=== PATIENT | male | born 1945 | race Caucasian/White ===

== ENCOUNTER → 2023-08-05 16:09 | Outpatient (CLI) | payer MEDICARE, SELFPAY ==
[2023-08-05 18:16] LABS: Alanine Aminotransferase 39 U/L (12-78); Albumin Level 4.2 g/dl (3.5-5.0); Albumin/Globulin Ratio 1.4 (1.1-1.8); Alkaline Phosphatase 140 U/L (38-126); Anion Gap 14.7 mEq/L (5-15); Aspartate Amino Transferase 37 U/L (17-59); Bilirubin,Total 0.6 mg/dl (0.2-1.3); Blood Urea Nitrogen 42 mg/dl (9-20); Calcium 9.3 mg/dl (8.4-10.2); Carbon Dioxide 28 mmol/L (22.0-30.0); Chloride 96 mmol/L (98-107); Estimated Glomerular Filt Rate 39 ml/min (>60); GFR (African American) 48 ML/MIN (>60); Globulin 2.9 g/dL (1.3-3.2); Glucose 113 mg/dl (74-100); Lipase 112 U/L (23-300); Potassium 4.7 mmoL/L (3.5-5.1); Sodium 134 mmol/L (136-145); Total Protein,Serum 7.1 g/dl (6.3-8.2)
== END ==
PROVIDERS: PCP Internal Medicine Adolescent Medicine; Visit Provider Internal Medicine Adolescent Medicine
DX: R11.10 Vomiting, unspecified (principal)
CPT/HCPCS: 80053; 83690

== ENCOUNTER 2023-08-06 08:05 | Inpatient (IN) | payer MEDICAID, SELFPAY ==
[2023-08-06] VITALS (15 sets, daily range): BP systolic 91–128; BP diastolic 55–74; PULSE 83–113; RESP 14–20; TEMP 36.8–37.2; O2SAT 91–96; BMI 23.8
--- NOTE | 2023-08-06 07:58 | ECG_ITS ---
APPROVED REPORT Exam: Resting ECG HR:116 bpm ECG Measurements Heart Rate 116 AXES QRSd 90 QRS 59 QT 334 T 55 QTc 403 Conclusion ATRIAL FLUTTER/TACHYCARDIA WITH RAPID VENTRICULAR RESPONSE NONSPECIFIC T-WAVE ABNORMALITY ABNORMAL RHYTHM ECG UNCONFIRMED REPORT Electronically signed by : Andrew Angulo MD 08/06/2023 17:10:51
--- NOTE | 2023-08-06 08:11 | CT_ITS ---
FINAL REPORT TECHNIQUE: Postcontrast axial images through the abdomen and pelvis were performed. This study was performed with techniques to keep radiation doses as low as reasonably achievable, (ALARA). Individualized dose reduction techniques using automated exposure control or adjustment of mA and/or kV according to the patient's size were employed. CLINICAL HISTORY: pain/intractable vomiting FINDINGS: Abdomen: There is bibasilar atelectasis with small left effusion. There are multiple low-attenuation masses in the liver consistent with multiple cysts. There is sludge or stones in the gallbladder. The spleen is unremarkable. The adrenals are normal. The pancreas is unremarkable. There is moderate bilateral hydronephrosis and hydroureter. The aorta is normal in caliber. No free fluid or adenopathy is identified. There are multiple fluid-filled distended small bowel loops with decompressed distal small bowel. Findings are worrisome for distal small bowel obstruction. There is swirling in the right abdomen mesentery well seen on axial images 62-74. Internal hernia is not excluded. Pelvis: The appendix is not identified. The urinary bladder is distended to the level of the umbilicus. No free fluid, free air, abscess or adenopathy is identified. There is a chronic moderate L1 compression fracture. There are postoperative changes in the bilateral inguinal regions IMPRESSION: Findings worrisome for distal small bowel obstruction with questionable internal hernia. Sludge or stones in the gallbladder. Bilateral hydronephrosis and hydroureter. Reviewed, Interpreted and Dictated by Ike Caballero III, MD Transcribed by Jayshree Pantoja Authenticated and [facility]
--- NOTE | 2023-08-06 08:11 | CT_ITS ---
FINAL REPORT TECHNIQUE: Then section axial CT images of the chest were obtained with contrast. Three-D reformatted images were also obtained.This study was performed with techniques to keep radiation doses as low as reasonably achievable (ALARA). Individualized dose reduction techniques using automated exposure control or adjustment of mA and/or kV according to the patient''s size were employed. CLINICAL HISTORY: tachycardic, SOA COMPARISON: None FINDINGS: There is suboptimal timing of the contrast bolus, and there is some limitation of overall image quality secondary to motion. There is no evidence of pulmonary embolism. There is ectasia of the thoracic ascending aorta, which measures 4.2 cm in diameter. There is a large mass centered in the left thyroid lobe which measures 9.8 x 7.7 cm in size and has either central necrosis or large central cyst. This mass creates mass effect involving the upper trachea and pharynx, which are deviated to the right. Mild changes of emphysema are present. Moderate scarring is present in the lung bailon bilaterally. A small left pleural effusion is present, and there is mild bibasilar atelectasis. An abdomen and pelvic CT was also performed on 08/06/2023, and discussion of the abdomen and pelvis are in that dictation. IMPRESSION: No evidence of pulmonary embolism. Large mass in the left lobe of the thyroid gland, measuring 9.8 x 7.7 cm in size with central necrosis or a large central cyst. There is marked mass effect upon the upper trachea and pharynx as described. Ectasia of the ascending aorta measuring 4.2 cm in diameter. Reviewed, Interpreted and Dictated by Ike Caballero III, MD Transcribed by Piedad Blacn Authenticated and [facility] [place] [place]
--- NOTE | 2023-08-06 08:16 | HMH.EDGENADL ---
Discharge Plan Disposition Patient Disposition: Admitted Prescriptions Prescriptions: No Action amiodarone 200 mg tablet 200 mg PO BID ondansetron HCl 4 mg tablet 4 mg PO Q4-6H pantoprazole 20 mg tablet,delayed release (DR/EC) 20 mg PO BID tamsulosin 0.4 mg capsule 0.4 mg PO DAILY metoprolol succinate 25 mg tablet extended release 24 hr 25 mg PO DAILY oxybutynin chloride 5 mg tablet 5 mg PO BID Eliquis 5 mg tablet 5 mg PO DAILY Referrals Follow up/Referrals: Andrew Angulo MD [Primary Care Provider] - See instructions Clinical Impressions Clinical Impression: Bowel obstruction, Acute urinary retention, BURTON (acute kidney injury), Atrial fibrillation Instructions Patient Instructions: DI for Diarrhea and Traveler's Diarrhea -- Adult, DI for Diarrhea and Traveler's Diarrhea -- Child, DI for Nausea -- Adult, DI for Nausea -- Child Discharge ED Provider: Meghan May General Adult HPI General Chief complaint: Nausea/Vomiting/Diarrhea Stated complaint: nausea & vomiting Time Seen by Provider: 08/06/23 08:06 Mode of Arrival: EMS Source of Information: Patient Limitations: No Limitations Description of Symptoms (Recalled from ER Triage Doc. by RN): Presents to ED from [place] with a chief complaint of vomiting since yesterday. [place] stated he came to them to finish rehab from [facility] for left hip fracture. [place] reports patient recieved a dose of IM Phenergan yesterday and 2 doses of Zofran last dose given at 0330. +Eliquis. Last BM yesterday History of Present Illness HPI narrative: This patient is a 77-year-old male with a history of thyroid disease, paroxysmal atrial fibrillation on Eliquis, CHF, CKD, UTI, hyponatremia, GERD, BPH, and prior left femur fracture who is currently at [facility] presenting to the emergency department for evaluation with concern for intractable nausea and vomiting. Per the nursing facility, the patient started vomiting yesterday. He has had Zofran twice and IM Phenergan once with no improvement. His last bowel movement was yesterday. They also note that his heart rate was irregular in the facility. Patient currently states that he has been vomiting since yesterday. He complains of mild generalized abdominal pain, but he denies other concerns at this time. He states he is very thirsty. Patient was brought in by EMS who noted that he was tachycardic but otherwise stable in route. Related Data Home Medications Medication Instructions Recorded Confirmed amiodarone 200 mg tablet 200 mg PO BID 08/06/23 08/06/23 apixaban 5 mg tablet (Eliquis) 5 mg PO DAILY 08/06/23 08/06/23 metoprolol succinate 25 mg 25 mg PO DAILY 08/06/23 08/06/23 tablet,extended release 24 hr ondansetron HCl 4 mg tablet 4 mg PO Q4-6H 08/06/23 08/06/23 oxybutynin chloride 5 mg tablet 5 mg PO BID 08/06/23 08/06/23 pantoprazole 20 mg tablet,delayed 20 mg PO BID 08/06/23 08/06/23 release tamsulosin 0.4 mg capsule 0.4 mg PO DAILY 08/06/23 08/06/23 Allergies Allergy/AdvReac Type Severity Reaction Status Date / Time No Known Allergies Allergy Verified 08/06/23 08:48 [facility] Disclaimer: The information contained in this section may have been updated after the patient was seen, as this information can be updated by other users. Social History Smoking Status: Unknown if ever smoked alcohol intake: never current occupational status: retired Travel in the last 8 weeks: None ROS Obtained: Yes All systems reviewed & no additional complaints except as documented Physical Exam General General appearance: alert and in no apparent distress Head Head exam: atraumatic and normocephalic Eye Eye exam: Present normal appearance, PERRL and EOMI ENT ENT exam: Present mucous membranes dry and normal external ear exam Neck Neck exam: Present normal inspect
[2023-08-06 08:26] LABS: Basophils % 0.3 % (0.1-2.0); Eosinophils % 0.6 % (0.1-12.0); Hematocrit 36.9 % (42.0-52.0); Hemoglobin 12.5 g/dL (14.1-18.0); Lymphocytes # 0.5 K/mm3 (0.7-4.5); Lymphocytes % 9.1 % (10-50); Mean Corpuscular HGB Conc 33.9 g/dL (31.8-35.4); Mean Corpuscular Hemoglobin 30.3 pg (27.0-31.2); Mean Corpuscular Volume 89.4 fl (80-94); Mean Platelet Volume 8.2 fl (7.4-10.4); Monocytes # 0.4 K/mm3 (0.1-1.0); Monocytes % 8.2 % (1.7-9.3); Neutrophils # 4.2 K/mm3 (1.8-7.8); Neutrophils % 81.8 % (37.0-80.0); Platelet Count 249 K/mm3 (142-424); Red Blood Count 4.12 M/mm3 (4.60-6.20); Red Cell Distribution Width 13.6 % (11.5-17.5); White Blood Count 5.2 K/mm3 (4.8-10.8)
--- NOTE | 2023-08-06 08:27 | ECG_ITS ---
APPROVED REPORT Exam: Resting ECG HR:119 bpm ECG Measurements Heart Rate 119 AXES QRSd 88 QRS -2 QT 305 T 52 QTc 376 Conclusion ATRIAL FIBRILLATION WITH RAPID VENTRICULAR RESPONSE NONSPECIFIC T-WAVE ABNORMALITY ABNORMAL RHYTHM ECG UNCONFIRMED REPORT Electronically signed by : Andrew Angulo MD 08/06/2023 17:10:42
--- NOTE | 2023-08-06 08:30 | PC.NURSE ---
Called lab to have them come draw blood cx
[2023-08-06 08:32] LABS: Alanine Aminotransferase 36 U/L (12-78); Albumin Level 4.1 g/dl (3.5-5.0); Albumin/Globulin Ratio 1.3 (1.1-1.8); Alkaline Phosphatase 105 U/L (38-126); Anion Gap 13.3 mEq/L (5-15); Aspartate Amino Transferase 37 U/L (17-59); Bilirubin,Total 0.9 mg/dl (0.2-1.3); Blood Urea Nitrogen 46 mg/dl (9-20); Calcium 9.2 mg/dl (8.4-10.2); Carbon Dioxide 30 mmol/L (22.0-30.0); Chloride 95 mmol/L (98-107); Creatinine Clearance Estimated 35 mL/min (50-200); Estimated Glomerular Filt Rate 35 ml/min (>60); GFR (African American) 42 ML/MIN (>60); Globulin 3.1 g/dL (1.3-3.2); Glucose 115 mg/dl (74-100); Lipase 35 U/L (23-300); Potassium 4.3 mmoL/L (3.5-5.1); Sodium 134 mmol/L (136-145); Total Protein,Serum 7.2 g/dl (6.3-8.2)
[2023-08-06 08:34] LABS: Activated Partial Thrombo Time 35.5 seconds (22.8-30.6); INR 1.17 (0.9-1.1); Prothrombin Time 12.5 seconds (10.1-12.5)
[2023-08-06 08:43] LABS: NT Pro Brain Natriuretic Pep. 3610 pg/mL (0-450)
[2023-08-06 08:45] LABS: Troponin I 0.02 ng/ml (0.00-0.034)
[2023-08-06 08:50] LABS: T4 (Thyroxine) 6.4 ug/dl (5.53-11.0)
[2023-08-06 09:16] LABS: Lactic Acid 1.1 mmol/L (0.7-2.1)
--- NOTE | 2023-08-06 10:26 | PC.NURSE ---
Pt turned onto left side, and repositioned in bed for comfort. Warm blanket provided. No other needs voiced at this time and call light remains within reach.
[2023-08-06 10:29] LABS: Appearance,Urine CLEAR (Clear); Bilirubin,Urine Negative (Negative); Blood, Urine TRACE-I (Negative); Color,Urine YELLOW (Yellow); Glucose,Urine (UA) Negative (Negative); Ketones,Urine Negative (Negative); Leukocyte Esterase,Urine Negative (Negative); Microscopic, Urine URINE MICROSCOPIC (MICROSCOPIC); Nitrate,Urine Negative (Negative); PH,Urine 5.5 (5.0-8.5); Protein,Urine Negative (Negative); Urobilinogen,Urine 0.2 EU/dl (0.2)
--- NOTE | 2023-08-06 10:31 | PC.NURSE ---
Bladder scanned patient; >1387mL. Catheter placed 1800mL output from avery catheter; MD notified. Call light within reach.
--- NOTE | 2023-08-06 10:36 | PC.NURSE ---
Pt also provided and assisted with mouth swab
[2023-08-06 10:41] LABS: Coronavirus 19, PCR Not Detected (NotDetected); Influenza A, PCR Not Detected (NotDetected); Influenza B, PCR Not Detected (NotDetected)
[2023-08-06 10:44] LABS: Bacteria,Urine Trace /lpf; RBC,Urine Occasional #/hpf (0-3); Squamous Epithelial Cell,Urine Occasional #/hpf (0-5); WBC,Urine Occasional #/hpf (0-3)
--- NOTE | 2023-08-06 11:00 | PC.NURSE ---
Rounded on patient; call light within reach of patient
--- NOTE | 2023-08-06 11:04 | XR_ITS ---
FINAL REPORT CLINICAL HISTORY: post NG tube placement FINDINGS: SINGLE-VIEW CHEST The heart size is normal. The patient is rotated to the right. The mediastinum is normal. There are mild bibasilar opacities, favor atelectasis. The right thorax is incompletely imaged. NG tube tip is near the GE junction. There is no pneumothorax. IMPRESSION: NG tube as above. Bibasilar atelectasis. Reviewed, Interpreted and Dictated by Ike Caballero III, MD Transcribed by Jayshree Pantoja Authenticated and [facility]
--- NOTE | 2023-08-06 11:04 | PC.NURSE ---
called rad for post NG tube placement
--- NOTE | 2023-08-06 11:09 | PC.NURSE ---
RAD at BS for post NG tube placement confirmation
--- NOTE | 2023-08-06 11:14 | PC.NURSE ---
Dr. Heller at bedside
--- NOTE | 2023-08-06 11:14 | PC.NURSE ---
Dr. May s/w Dr. Camargo regarding admission
--- NOTE | 2023-08-06 11:31 | EXP.HP ---
History of Present Illness *Admission Date: 08/06/23 *Reason for visit:: nausea and vomiting *History of present illness: Patient is a poor historian and. Most of history obtained from ER documentation, discussion with ER physician, and some from patient. Mr. Dempsey is a 77-year-old male with history of thyroid disease, paroxysmal A-fib, CHF, CKD, previously had a left femur fracture and was in rehab until this past weekend when he was transferred to [facility] for continued skilled therapy and nursing care. prison reported that he has been having nausea and vomiting that is intractable. Nonbloody. Symptoms for the past 24 hours. Last bowel movement yesterday. No significant response to Zofran or Phenergan. Noted to have an irregular heart rate at the facility. Was brought to the ER via EMS for further evaluation. Complained of mild generalized abdominal pain on arrival. Afebrile. Also complains of being thirsty. No chest pain or shortness of breath. Patient is afebrile. Stable on room air. Imaging of abdomen showed concern for obstruction likely secondary to severely distended bladder. Land catheter placed in the ER draining 1.8 L upon placement. NG placed for decompression and surgery was consulted. Medicine consulted for admission. Patient denies any abdominal pain after arriving to the floor. Belly is soft. Land catheter in place continuing to drain significant urine. No further vomiting or nausea since admission. [facility] Disclaimer: The information contained in this section may have been updated after the patient was seen, as this information can be updated by other users. Social History Smoking Status: Unknown if ever smoked alcohol intake: never current occupational status: retired Travel in the last 8 weeks: None Review of Systems Review of Systems Review of systems (narrative): 14 point review of systems performed, pertinent positives and negatives as per HPI Meds Home Medications and Allergies Home Medications Medication Instructions Recorded Confirmed Type acetaminophen 500 mg tablet 1,000 mg PO BIDP PRN Fever Or Pain 08/06/23 08/06/23 History amiodarone 200 mg tablet 200 mg PO BID 08/06/23 08/06/23 History apixaban 5 mg tablet (Eliquis) 5 mg PO BID 08/06/23 08/06/23 History metoprolol succinate 25 mg 25 mg PO DAILY 08/06/23 08/06/23 History tablet,extended release 24 hr ondansetron HCl 4 mg tablet 4 mg PO Q4-6H PRN nausea or 08/06/23 08/06/23 History vomiting oxybutynin chloride 5 mg tablet 5 mg PO BID 08/06/23 08/06/23 History pantoprazole 20 mg tablet,delayed 20 mg PO BID 08/06/23 08/06/23 History release sucralfate 1 gram tablet (Carafate) 1 g PO HS 08/06/23 08/06/23 History tamsulosin 0.4 mg capsule 0.4 mg PO HS 08/06/23 08/06/23 History zinc oxide 12 % topical cream 1 applic topical DAILY Coccyx 08/06/23 08/06/23 History (Paco Protect (zinc oxide)) New Prescriptions to Start Prescriptions: Allergies Allergy/AdvReac Type Severity Reaction Status Date / Time No Known Allergies Allergy Verified 08/06/23 08:48 Exam Data for Last 24 hours Vital signs and Labs for Last 24 Hours: Temp Pulse Resp BP Pulse Ox O2 Del Method 98.8 F 113 H 20 114/70 95 Room Air 08/06/23 08:05 08/06/23 11:00 08/06/23 11:00 08/06/23 11:00 08/06/23 11:00 08/06/23 10:00 Laboratory Results - last 24 hr 08/06/23 08:10: WBC 5.2, RBC 4.12 L, Hgb 12.5 L, Hct 36.9 L, MCV 89.4, MCH 30.3, MCHC 33.9, RDW 13.6, Plt Count 249, MPV 8.2, Neut % (Auto) 81.8 H, Lymph % (Auto) 9.1 L, [place] % (Auto) 8.2, Eos % (Auto) 0.6, Baso % (Auto) 0.3, Neut # (Auto) 4.2, Lymph # (Auto) 0.5 L, [place] # (Auto) 0.4, Eos # (Auto) 0.0, Baso # (Auto) 0.0, PT 12.5, INR 1.17 H, APTT 35.5 H, Sodium 134 L, Potassium 4.3, Chloride 95 L, Carbon Dioxide 30, Anion Gap 13.3, BUN 46 H, Creatinine 1.90 H, Estimated Creat Clear 35, Estimated GFR 35 L, Est G
--- NOTE | 2023-08-06 11:38 | EXP.SURG.CON ---
History of Present Illness *Admission Date: 08/06/23 *Reason for visit:: Possible bowel obstruction *History of present illness: This is a 77-year-old gentleman seen in consultation after evaluation emergency department for nausea/vomiting. Please see HPI and truncated medical decision making narrative from emergency department evaluation reported below. Forwarded from emergency department evaluation: This patient is a 77-year-old male with a history of thyroid disease, paroxysmal atrial fibrillation on Eliquis, CHF, CKD, UTI, hyponatremia, GERD, BPH, and prior left femur fracture who is currently at [facility] for rehabilitation presenting to the emergency department for evaluation with concern for intractable nausea and vomiting. Per the nursing facility, the patient started vomiting yesterday. He has had Zofran twice and IM Phenergan once with no improvement. His last bowel movement was yesterday. They also note that his heart rate was irregular in the facility. Patient currently states that he has been vomiting since yesterday. He complains of mild generalized abdominal pain, but he denies other concerns at this time. He states he is very thirsty. Patient was brought in by EMS who noted that he was tachycardic but otherwise stable in route. Medical Decision Narrative: He was just brought there yesterday from [facility] for rehabilitation of his left femur fracture. On exam, the patient is tachycardic with an irregularly irregular rhythm. Otherwise, vital signs are reassuring. He does have abdominal distention with tenderness. Workup included broad lab evaluation including infectious, metabolic, and cardiac workup as well as CT scan of the chest, abdomen, and pelvis. EKG was obtained and demonstrated atrial tachycardia with no acute ST changes concerning for ischemia. Patient was given a bolus of IV fluids as well as IV Zofran for symptomatic improvement. On reassessment, the patient continues to be in atrial fibrillation with a rate in the low 100s. Rate control not administered, as I feel that this is likely in response to his acute illness. I independently interpreted CT scan prior to the radiologist read and noted significant bladder distention as well as multiple air/fluid levels and dilated bowel loops concerning for bowel obstruction and acute urinary retention. Please see their read for final interpretation. Labs were obtained that demonstrated BURTON with worsening of creatinine from even yesterday. He is up to 1.9 from 1.7. He also has mild hyponatremia and hypochloremia. Given acute urinary retention, Land catheter was placed with 1.8 L of urine in the bladder. Patient was also agreeable to have an NG tube placed to prevent further vomiting, as he continues to have belching at this time. After Land catheter was placed, patient had significant improvement in abdominal distention. I called and had an interactive discussion with general surgeon, Dr. Heller, who advised this all could be result of the acute urinary retention, however he advises NG placement and monitoring. I had an interactive discussion with Dr. Camargo who is agreeable to admit the patient for further evaluation and management given these things. PFSH PFSH Disclaimer: The information contained in this section may have been updated after the patient was seen, as this information can be updated by other users. Social History (Updated 08/06/23 @ 11:30 by Meghan May DO) Smoking Status: Unknown if ever smoked alcohol intake: never current occupational status: retired Travel in the last 8 weeks: None Meds Home Medications and Allergies Home Medications Medication Instructions Recorded Confirmed Type amiodarone 200 mg tablet 200 mg PO BID 08/06/23 08/06/23 History apixaban 5 mg tablet (Eliquis) 5 mg PO DAILY 08/06/23 08/06/23 Histor
[2023-08-06 11:58] LABS: Troponin I 0.02 ng/ml (0.00-0.034)
--- NOTE | 2023-08-06 12:11 | PC.NURSE ---
Report given to Rajat THOMSON
--- NOTE | 2023-08-06 12:30 | PC.NURSE ---
Rounded on patient; call light within reach.
--- NOTE | 2023-08-06 14:02 | P.CONPHA_ITS ---
Pharmacy Intervention Comments: Med reconciliation completed using list from [place]
--- NOTE | 2023-08-06 14:56 | HMH.PTEV ---
Physical Therapy Evaluation Rehab PT IP Evaluation Start: 08/06/23 11:33 Freq: ONCE Status: Active Protocol: Document 08/06/23 14:50 PHORNE (Rec: 08/06/23 14:56 PHORNE [id number]) Subjective/History History History 77 yowm adm to [facility] with urinary retention and SBO. He has PMH of thyroid disease, paroxysmal atrial fibrillation on Eliquis, CHF, CKD, UTI, hyponatremia, GERD, BPH, and prior left femur fracture. He was apparently just transferred to SNF from inpatient rehab yesterday for continued rehab after femur fx . Unknown prior living situation. Subjective Subjective Pt reports feeling thirsty, but otherwise no new c/o. Agrees to mobility assessment. New diagnosis of cancer in past 12 No months? Rehab PT IP Eval Objective Appearance Patient Behavior Appropriate Patient Orientation Person,Place Difficulty following instructions none Speech Pattern Clear Ambulation Patient Able to Ambulate Yes Ambulation Observation IP General Gait Pattern Observation Shuffling Step Ambulation Distance (feet) 10 Ambulation Assistive Device Rolling Walker Ambulation Ability Contact Guard/Hand Hold Balance Ability to Arise Able, uses arms to help Sitting Balance Steady, safe Standing Balance Steady, wide stance Dynamic Sitting Balance Ability Good Dynamic Standing Balance Ability Fair Transfers Bed Transfer Ability Minimal x 1 (25% assist) Chair Transfer Ability Minimal x 1 (25% assist) Sit to Stand Bed Transfer Ability Minimal x 1 (25% assist) Sit to Stand Chair Transfer Ability Minimal x 1 (25% assist) Rehab PT IP prob,goals,plan Problems Date of Evaluation: 08/06/23 PT IP Problems Bed Mobility,Transfers,Gait Rehab Potential Rehab Potential Good Plan PT Intervention Plan Bed Mobility,Transfers,Gait, Therapeutic Exercise PT Plan Frequency Daily Duration LOS Discharge Goals Bed Transfer Ability Contact Guard/Hand Hold Sit to Stand Chair Transfer Ability Contact Guard/Hand Hold Ambulation Assistive Device Rolling Walker Ambulation Distance (feet) 25 Discharge Plan PT Discharge Plan Pt is currently most appropriate f
[2023-08-06 15:11] LABS: Troponin I 0.01 ng/ml (0.00-0.034)
--- NOTE | 2023-08-06 15:31 | CARE MANAGER ---
Addendum entered by Geneva Munguia RN 08/08/23 12:42: Faxed updates to [facility]. Patient should be able to discharge soon. Original Note: Spoke with Carla at [facility]. Patient only has Medicare part B. He is currently Medicaid pending at their facility. Will update them on condition.
--- NOTE | 2023-08-06 15:55 | HMH.OTEV ---
OT Inpatient Evaluation Rehab OT IP Evaluation Start: 08/06/23 11:33 Freq: ONCE Status: Active Protocol: Document 08/06/23 15:16 LEBRONJOHAN (Rec: 08/06/23 15:55 RENITA [id number]) Rehab OT IP Assessment Subjective History This patient is a 77-year-old male with a history of thyroid disease, paroxysmal atrial fibrillation on Eliquis, CHF, CKD, UTI, hyponatremia, GERD, BPH, and prior left femur fracture who is currently at [facility] presenting to the emergency department for evaluation with concern for intractable nausea and vomiting. Per the nursing facility, the patient started vomiting yesterday. He has had Zofran twice and IM Phenergan once with no improvement. His last bowel movement was yesterday. They also note that his heart rate was irregular in the facility. Patient currently states that he has been vomiting since yesterday. He complains of mild generalized abdominal pain, but he denies other concerns at this time. He states he is very thirsty. Patient was brought in by EMS who noted that he was tachycardic but otherwise stable in route. Patient has a hx of femur fx with recieving therapy at [facility] prior to [place]. Unknow of baseline with ADLs and fx'l mobility. Subjective I can get up. Instructed Patient on proper hand and foot placement to participate in bed mobility from supine->sit @ EOB->stand- > ambulate within room ~10ft. Patient currently at NG tube and catheter placements which limited mobility distance. All
--- NOTE | 2023-08-06 18:54 | PC.NURSE ---
patient is alert and follows commands. ng tube 58 at the nare. he denies pain. abd is soft and non-tender. tolerating room air well. avery cath in place to bedside drain. dr baig rounded on patient. wants po contrast given at 2200 for ABD series in the in the morning; will pass this along to oncoming nurse. Ozzie in radiology was made aware also.
[2023-08-07 04:00] VITALS: BMI 21.5
--- NOTE | 2023-08-07 05:40 | PC.NURSE ---
Patient left the floor with x-ray at this time.
--- NOTE | 2023-08-07 05:52 | PC.NURSE ---
Patient returned to floor from x-ray at this time.
--- NOTE | 2023-08-07 06:00 | XR_ITS ---
PROCEDURE INFORMATION: Exam: XR Complete Acute Abdomen Series Including Chest Exam date and time: 08/07/2023 5:33 AM Age: 77 years old Clinical indication: Abnormal findings; Abnormal radiologic finding of the abdomen; Radiologic exam and body structure: CT abd/pelvis; Patient HX: Contrast given 8 hours prior to exam; Additional info: Sbo vs ileus TECHNIQUE: Imaging protocol: Radiologic exam. Complete acute abdomen series, including 2 or more views of the abdomen and a single view chest. COMPARISON: 1. CR XR CHEST PORTABLE 08/06/2023 11:04 AM 2. Report from CT chest, abdomen and pelvis 08/06/2023 is available, images are not available for direct comparison FINDINGS: Tubes, catheters and devices: Tip of NG tube is at the GE junction and should be advanced into the stomach. Tubular density projects midline of the pelvis, likely Land catheter with balloon. Lungs: Calcified granuloma left upper lobe. Biapical scarring. Scattered reticular markings bilaterally. Pleural spaces: Normal. No pleural effusions. No pneumothorax. Heart/Mediastinum: Rightward tracheal and esophageal deviation again noted, likely due to large left thyroid mass described on comparison report. Gastrointestinal tract: Contrast throughout the colon. Scattered mildly distended air-filled loops of small bowel. Left colonic diverticulosis. Intraperitoneal space: Normal. No free air. Bones/joints: Mild rightward curvature of the thoracic spine. Soft tissues: Normal. IMPRESSION: 1. Tip of NG tube is at the GE junction and should be advanced into the stomach. 2. Oral contrast is present throughout the colon and rectum, therefore no obstruction is evident. Left colonic diverticulosis is noted. Mildly distended loops of gas-filled small bowel, likely ileus. 3. Chronic chest findings as above.
[2023-08-07 07:43] VITALS: BP 96/62; PULSE 94; RESP 20; TEMP 36.9; O2SAT 94
[2023-08-07 07:58] LABS: Basophils % 0.2 % (0.1-2.0); Eosinophils # 0.2 K/mm3 (0.0-0.4); Eosinophils % 3.7 % (0.1-12.0); Hematocrit 34.3 % (42.0-52.0); Lymphocytes # 0.5 K/mm3 (0.7-4.5); Lymphocytes % 11.8 % (10-50); Mean Corpuscular HGB Conc 32.4 g/dL (31.8-35.4); Mean Corpuscular Hemoglobin 29.6 pg (27.0-31.2); Mean Corpuscular Volume 91.3 fl (80-94); Mean Platelet Volume 8.3 fl (7.4-10.4); Monocytes # 0.3 K/mm3 (0.1-1.0); Monocytes % 6.4 % (1.7-9.3); Neutrophils # 3.3 K/mm3 (1.8-7.8); Platelet Count 237 K/mm3 (142-424); Red Blood Count 3.76 M/mm3 (4.60-6.20); Red Cell Distribution Width 13.6 % (11.5-17.5); White Blood Count 4.2 K/mm3 (4.8-10.8)
[2023-08-07 08:14] LABS: Alanine Aminotransferase 29 U/L (12-78); Albumin Level 3.6 g/dl (3.5-5.0); Albumin/Globulin Ratio 1.3 (1.1-1.8); Alkaline Phosphatase 104 U/L (38-126); Anion Gap 13.7 mEq/L (5-15); Aspartate Amino Transferase 34 U/L (17-59); Bilirubin,Total 0.6 mg/dl (0.2-1.3); Blood Urea Nitrogen 38 mg/dl (9-20); Calcium 8.8 mg/dl (8.4-10.2); Carbon Dioxide 27 mmol/L (22.0-30.0); Chloride 102 mmol/L (98-107); Creatinine Clearance Estimated 37 mL/min (50-200); Estimated Glomerular Filt Rate 42 ml/min (>60); GFR (African American) 51 ML/MIN (>60); Globulin 2.8 g/dL (1.3-3.2); Glucose 97 mg/dl (74-100); Magnesium 1.8 mg/dl (1.6-2.3); Potassium 3.7 mmoL/L (3.5-5.1); Sodium 139 mmol/L (136-145); Total Protein,Serum 6.4 g/dl (6.3-8.2)
[2023-08-07 09:14] LABS: Hemoglobin 11.1 g/dL (14.1-18.0)
--- NOTE | 2023-08-07 09:30 | P.PN_ITS ---
Subjective Patient reports: bowel movement Narrative: Minimal nasogastric output. Multiple bowel movements noted per nursing. Exam Data for Last 24 hours Vital signs and Labs for Last 24 Hours: Temp Pulse Resp BP Pulse Ox O2 Del Method 98.5 F 94 H 20 96/62 L 94 L Room Air 08/07/23 07:43 08/07/23 07:43 08/07/23 07:43 08/07/23 07:43 08/07/23 07:43 08/07/23 07:43 Laboratory Results - last 24 hr 08/06/23 10:21: Urine Color Yellow, Urine Appearance Clear, Urine pH 5.5, Ur Specific [place] 1.010, Urine Protein Negative, Urine Glucose (UA) Negative, Urine Ketones Negative, Urine Blood Trace-i, Urine Nitrate Negative, Urine Bilirubin Negative, Urine Urobilinogen 0.2, Ur Leukocyte Esterase Negative, Urine RBC Occasional, Urine WBC Occasional, Ur Squamous Epith Cells Occasional, Urine Bacteria Trace 08/06/23 10:33: SARS-CoV-2 (PCR) Not detected, Influenza A Untype (PCR) Not detected, Influenza Type B (PCR) Not detected 08/06/23 11:25: Troponin I 0.02 08/06/23 14:35: Troponin I 0.01 08/07/23 07:16: WBC 4.2 L, RBC 3.76 L, Hgb 11.1 L D, Hct 34.3 L, MCV 91.3, MCH 29.6, MCHC 32.4, RDW 13.6, Plt Count 237, MPV 8.3, Neut % (Auto) 78.0, Lymph % (Auto) 11.8, [place] % (Auto) 6.4, Eos % (Auto) 3.7, Baso % (Auto) 0.2, Neut # (Auto) 3.3, Lymph # (Auto) 0.5 L, [place] # (Auto) 0.3, Eos # (Auto) 0.2, Baso # (Auto) 0.0, Sodium 139, Potassium 3.7, Chloride 102, Carbon Dioxide 27, Anion Gap 13.7, BUN 38 H, Creatinine 1.60 H, Estimated Creat Clear 37, Estimated GFR 42 L, Est GFR ( Amer) 51 L D, Glucose 97, Calcium 8.8, Magnesium 1.8, Total Bilirubin 0.6, AST 34, ALT 29, Alkaline Phosphatase 104, Total Protein 6.4, Albumin 3.6 D, Globulin 2.8, Albumin/Globulin Ratio 1.3 I & O for Last 24 hours: Intake & Output 08/04/23 08/05/23 08/06/23 08/07/23 11:59 11:59 11:59 11:59 Output Total 1800 / 1800 2425 / 2425 Balance -1800 / -1800 -2425 / -2425 Weight 166 lb 150 lb 5 oz Radiology Reports for the Last 24 Hours: Flat and upright dated 08/07/2023 - IMPRESSION: 1. Tip of NG tube is at the GE junction and should be advanced into the stomach. 2. Oral contrast is present throughout the colon and rectum, therefore no obstruction is evident. Left colonic diverticulosis is noted. Mildly distended loops of gas-filled small bowel, likely ileus. 3. Chronic chest findings as above. Constitutional Constitutional: no acute distress *Routine Respiratory Exam Respiratory: Absent respiratory distress *Routine Cardiovascular Exam Cardiovascular: Absent tachycardia *Routine Abdominal Exam Abdominal: Present soft Progress Note: A&P Assessment and plan (1) Bowel obstruction: Status: Acute Assessment and plan: Morning films consistent with ongoing ileus; however, there is no evidence of obstruction as oral contrast is noted within colon/rectum. Multiple bowel movements noted. Nasogastric tube to be removed Continue serial abdominal exams Very slow advancement of diet as per primary service (note persistent ileus) (2) Acute urinary retention: Status: Acute
--- NOTE | 2023-08-07 10:33 | EXP.ACUTE.PN ---
Subjective *Date: 08/07/23 *Time: 10:33 Interval history: Patient stoic on exam this morning. No vomiting overnight. Has had 2.5 L of urine output and 1.8 L of gastric output. Imaging of abdomen this morning showed no obstruction, appears to have some ileus given bowel gas and fluid pattern. Contrast all the way to rectum however. Denies nausea, abdominal pain, chest pain, shortness of breath. Medical Exam Vital signs and Labs for Last 24 Hours: Vital Signs Temp Pulse Pulse Resp BP BP Pulse Ox 08/07/23 07:43 98.5 F 94 H 20 96/62 L 94 L 08/07/23 05:00 08/06/23 20:00 08/06/23 23:00 08/06/23 21:00 08/06/23 20:00 98.9 F 92 H 18 122/67 95 08/06/23 17:40 08/06/23 17:00 08/06/23 16:00 98.2 F 100 H 18 128/62 94 L 08/06/23 15:00 08/06/23 13:00 08/06/23 12:30 104 H 18 105/73 L 95 08/06/23 12:45 98.8 F 109 H 16 105/73 L 08/06/23 12:01 101 H 17 102/71 L 96 08/06/23 11:30 101 H 17 97/66 L 91 L 08/06/23 11:00 113 H 20 114/70 95 O2 Del Method 08/07/23 07:43 Room Air 08/07/23 05:00 Room Air 08/06/23 20:00 Room Air 08/06/23 23:00 Room Air 08/06/23 21:00 Room Air 08/06/23 20:00 Room Air 08/06/23 17:40 Room Air 08/06/23 17:00 Room Air 08/06/23 16:00 Room Air 08/06/23 15:00 Room Air 08/06/23 13:00 Room Air 08/06/23 12:30 08/06/23 12:45 Room Air 08/06/23 12:01 Room Air 08/06/23 11:30 08/06/23 11:00 Intake and Output 08/06/23 08/07/23 08/07/23 23:59 07:59 15:59 Output Total 925 / 2725 1500 / 1500 Balance -925 / -2725 -1500 / -1500 Output: Output, Urine Amount 925 / 925 1500 / 1500 Other: Number of Voids 0 Number of Unmeasured Voids 0 Number of Bowel Movements 1 Weight 68.181 kg Patient Weight 08/07/23 23:59 Weight 68.181 kg Laboratory Results - last 24 hr 08/06/23 10:21: Urine RBC Occasional, Urine WBC Occasional, Ur Squamous Epith Cells Occasional, Urine Bacteria Trace 08/06/23 10:33: SARS-CoV-2 (PCR) Not detected, Influenza A Untype (PCR) Not detected, Influenza Type B (PCR) Not detected 08/06/23 11:25: Troponin I 0.02 08/06/23 14:35: Troponin I 0.01 08/07/23 07:16: WBC 4.2 L, RBC 3.76 L, Hgb 11.1 L D, Hct 34.3 L, MCV 91.3, MCH 29.6, MCHC 32.4, RDW 13.6, Plt Count 237, MPV 8.3, Neut % (Auto) 78.0, Lymph % (Auto) 11.8, [place] % (Auto) 6.4, Eos % (Auto) 3.7, Baso % (Auto) 0.2, Neut # (Auto) 3.3, Lymph # (Auto) 0.5 L, [place] # (Auto) 0.3, Eos # (Auto) 0.2, Baso # (Auto) 0.0, Sodium 139, Potassium 3.7, Chloride 102, Carbon Dioxide 27, Anion Gap 13.7, BUN 38 H, Creatinine 1.60 H, Estimated Creat Clear 37, Estimated GFR 42 L, Est GFR ( Amer) 51 L D, Glucose 97, Calcium 8.8, Magnesium 1.8, Total Bilirubin 0.6, AST 34, ALT 29, Alkaline Phosphatase 104, Total Protein 6.4, Albumin 3.6 D, Globulin 2.8, Albumin/Globulin Ratio 1.3 I & O for Labs for Last 24 Hours: Intake & Output 08/04/23 08/05/23 08/06/23 08/07/23 23:59 23:59 23:59 23:59 Output Total 2725 / 2725 1500 / 1500 Balance -2725 / -2725 -1500 / -1500 Weight 75.296 kg 68.181 kg Constitutional: Present no acute distress, average body habitus, chronically ill appearing and cooperative Head: Present atraumatic and normocephalic ENT: Present normal exam Neck: Absent normal inspection Comment:: Prominent goiter Respiratory: Present normal respiratory effort; Absent rhonchi, wheezes or crackles Cardiac: Present Reg Rate and Rhythm GI: Present soft and normal bowel sounds; Absent distention or tenderness (male): Present normal inspection Comment:: Land catheter in place Extremities: Present normal inspection and full ROM Skin: Present intact; Absent erythema Neuro: Present Grossly Intact, alert and moves all extremities Assessment and Plan *Assessment and plan (1) Acute urinary retention: Status: Acute Category: Medical Code(s): R33.8 - Other retention of ur
[2023-08-07 15:47] VITALS: BP 107/58; PULSE 86; RESP 20; TEMP 36.9; O2SAT 99
[2023-08-07 20:00] VITALS: BP 117/47; PULSE 113; RESP 18; TEMP 37.1; O2SAT 96
[2023-08-08 04:00] VITALS: BP 115/67; PULSE 81; RESP 18; TEMP 36.7; O2SAT 100; BMI 21.4
--- NOTE | 2023-08-08 06:00 | XR_ITS ---
PROCEDURE INFORMATION: Exam: XR Complete Acute Abdomen Series Including Chest Exam date and time: 08/08/2023 5:41 AM Age: 77 years old Clinical indication: Abdominal pain; Additional info: Sbo vs ileus TECHNIQUE: Imaging protocol: Radiologic exam. Complete acute abdomen series, including 2 or more views of the abdomen and a single view chest. COMPARISON: CR XR ACUTE ABDOMEN SERIES 08/07/2023 5:33 AM FINDINGS: Tubes, catheters and devices: Bladder catheter identified. Lungs: No acute appearing consolidation or airspace disease. Pleural spaces: Normal. No pleural effusions. No pneumothorax. Heart/Mediastinum: Persistent deviation of the upper mediastinum to the right, similar to the prior exam. Gastrointestinal tract: There are numerous mildly prominent air-filled loops of small bowel measuring just over 3 cm in diameter. There is contrast seen within the colon including the distal colon. Intraperitoneal space: No free air. Bones/joints: No acute fracture. Soft tissues: No acute findings IMPRESSION: Findings consistent with partial bowel obstruction versus ileus.
[2023-08-08 07:10] LABS: Basophils % 0.1 % (0.1-2.0); Eosinophils # 0.2 K/mm3 (0.0-0.4); Eosinophils % 5.5 % (0.1-12.0); Hematocrit 32.8 % (42.0-52.0); Hemoglobin 11.3 g/dL (14.1-18.0); Lymphocytes # 0.6 K/mm3 (0.7-4.5); Lymphocytes % 14.1 % (10-50); Mean Corpuscular HGB Conc 34.5 g/dL (31.8-35.4); Mean Corpuscular Hemoglobin 30.4 pg (27.0-31.2); Mean Corpuscular Volume 88.2 fl (80-94); Mean Platelet Volume 8.4 fl (7.4-10.4); Monocytes # 0.3 K/mm3 (0.1-1.0); Monocytes % 7.4 % (1.7-9.3); Neutrophils # 3.2 K/mm3 (1.8-7.8); Neutrophils % 72.9 % (37.0-80.0); Platelet Count 242 K/mm3 (142-424); Red Blood Count 3.72 M/mm3 (4.60-6.20); Red Cell Distribution Width 13.6 % (11.5-17.5); White Blood Count 4.4 K/mm3 (4.8-10.8)
[2023-08-08 07:24] LABS: Alanine Aminotransferase 25 U/L (12-78); Albumin Level 3.4 g/dl (3.5-5.0); Albumin/Globulin Ratio 1.2 (1.1-1.8); Alkaline Phosphatase 100 U/L (38-126); Anion Gap 9.7 mEq/L (5-15); Aspartate Amino Transferase 28 U/L (17-59); Bilirubin,Total 0.7 mg/dl (0.2-1.3); Blood Urea Nitrogen 28 mg/dl (9-20); Calcium 8.5 mg/dl (8.4-10.2); Carbon Dioxide 28 mmol/L (22.0-30.0); Chloride 99 mmol/L (98-107); Creatinine Clearance Estimated 42 mL/min (50-200); Estimated Glomerular Filt Rate 49 ml/min (>60); GFR (African American) 59 ML/MIN (>60); Globulin 2.9 g/dL (1.3-3.2); Glucose 105 mg/dl (74-100); Magnesium 1.8 mg/dl (1.6-2.3); Potassium 3.7 mmoL/L (3.5-5.1); Sodium 133 mmol/L (136-145); Total Protein,Serum 6.3 g/dl (6.3-8.2)
--- NOTE | 2023-08-08 07:42 | EXP.SURG.PN ---
Subjective Patient reports: no new complaints, feels better and bowel movement Exam Data for Last 24 hours Vital signs and Labs for Last 24 Hours: Temp Pulse Resp BP Pulse Ox O2 Del Method 98.0 F 81 18 115/67 100 Room Air 08/08/23 04:00 08/08/23 04:00 08/08/23 04:00 08/08/23 04:00 08/08/23 04:00 08/08/23 06:33 Laboratory Results - last 24 hr 08/07/23 07:16: WBC 4.2 L, RBC 3.76 L, Hgb 11.1 L D, Hct 34.3 L, MCV 91.3, MCH 29.6, MCHC 32.4, RDW 13.6, Plt Count 237, MPV 8.3, Neut % (Auto) 78.0, Lymph % (Auto) 11.8, [place] % (Auto) 6.4, Eos % (Auto) 3.7, Baso % (Auto) 0.2, Neut # (Auto) 3.3, Lymph # (Auto) 0.5 L, [place] # (Auto) 0.3, Eos # (Auto) 0.2, Baso # (Auto) 0.0, Sodium 139, Potassium 3.7, Chloride 102, Carbon Dioxide 27, Anion Gap 13.7, BUN 38 H, Creatinine 1.60 H, Estimated Creat Clear 37, Estimated GFR 42 L, Est GFR ( Amer) 51 L D, Glucose 97, Calcium 8.8, Magnesium 1.8, Total Bilirubin 0.6, AST 34, ALT 29, Alkaline Phosphatase 104, Total Protein 6.4, Albumin 3.6 D, Globulin 2.8, Albumin/Globulin Ratio 1.3 08/08/23 06:41: WBC 4.4 L, RBC 3.72 L, Hgb 11.3 L, Hct 32.8 L, MCV 88.2, MCH 30.4, MCHC 34.5, RDW 13.6, Plt Count 242, MPV 8.4, Neut % (Auto) 72.9, Lymph % (Auto) 14.1, [place] % (Auto) 7.4, Eos % (Auto) 5.5, Baso % (Auto) 0.1, Neut # (Auto) 3.2, Lymph # (Auto) 0.6 L, [place] # (Auto) 0.3, Eos # (Auto) 0.2, Baso # (Auto) 0.0, Sodium 133 L, Potassium 3.7, Chloride 99, Carbon Dioxide 28, Anion Gap 9.7, BUN 28 H D, Creatinine 1.40 H, Estimated Creat Clear 42, Estimated GFR 49 L, Est GFR ( Amer) 59, Glucose 105 H, Calcium 8.5, Magnesium 1.8, Total Bilirubin 0.7, AST 28, ALT 25, Alkaline Phosphatase 100, Total Protein 6.3, Albumin 3.4 L, Globulin 2.9, Albumin/Globulin Ratio 1.2 I & O for Last 24 hours: Intake & Output 08/05/23 08/06/23 08/07/23 08/08/23 11:59 11:59 11:59 11:59 Intake Total 670 / 670 Output Total 1800 / 1800 2425 / 2425 1675 / 1675 Balance -1800 / -1800 -2425 / -2425 -1005 / -1005 Weight 166 lb 150 lb 5 oz 149 lb 5 oz Radiology Reports for the Last 24 Hours: Flat and upright films this morning reveal improved bowel gas pattern with some persistent scattered dilated small bowel loops Constitutional Constitutional: no acute distress *Routine Respiratory Exam Respiratory: Absent respiratory distress *Routine Cardiovascular Exam Cardiovascular: Absent tachycardia *Routine Abdominal Exam Abdominal: Present soft *Routine Neurological Exam Neurological: Present alert Routine Psychiatric Exam Psychiatric: Present cooperative Progress Note: A&P Assessment and plan (1) Ileus: Status: Acute Assessment and plan: Continue slow improvement noted. Full liquid diet ordered (2) Acute urinary retention: Status: Acute
[2023-08-08 08:00] VITALS: BP 116/68; PULSE 90; RESP 18; TEMP 36.7; O2SAT 99
--- NOTE | 2023-08-08 13:02 | EXP.DC.SUM ---
General Admission date:: 08/06/23 Discharge date: 08/08/23 HPI HPI HPI: Patient is a poor historian and. Most of history obtained from ER documentation, discussion with ER physician, and some from patient. Mr. Dempsey is a 77-year-old male with history of thyroid disease, paroxysmal A-fib, CHF, CKD, previously had a left femur fracture and was in rehab until this past weekend when he was transferred to [facility] for continued skilled therapy and nursing care. residential reported that he has been having nausea and vomiting that is intractable. Nonbloody. Symptoms for the past 24 hours. Last bowel movement yesterday. No significant response to Zofran or Phenergan. Noted to have an irregular heart rate at the facility. Was brought to the ER via EMS for further evaluation. Complained of mild generalized abdominal pain on arrival. Afebrile. Also complains of being thirsty. No chest pain or shortness of breath. Patient is afebrile. Stable on room air. Imaging of abdomen showed concern for obstruction likely secondary to severely distended bladder. Land catheter placed in the ER draining 1.8 L upon placement. NG placed for decompression and surgery was consulted. Medicine consulted for admission. Patient denies any abdominal pain after arriving to the floor. Belly is soft. Land catheter in place continuing to drain significant urine. No further vomiting or nausea since admission. Hospital Course Hospital Course Hospital Course: 77-year-old male with a recent stay in rehab for left hip/femur fracture. Transition to longterm in the past week. Presented with intractable nausea and vomiting. Workup in the ER concerning for bowel obstruction and urinary retention. Discussed case with ER physician, request admission for NG, bowel decompression to low wall suction, and further monitoring of kidney dysfunction. Medicine agreed to admit for further management. Had improvement in his bowel obstruction with decompression of his bladder. Started having bowel movements. NG was removed and patient's diet has been advanced to full liquid over the past 24 hours prior to discharge. He has had no further nausea or vomiting. No concerns for bowel obstruction. Having multiple bowel movements a day. Will leave Land in place. Stable to discharge back to nursing facility. Problems addressed as follows: Acute urinary retention [place] -Land catheter placed on admission. Had 1800 cc of urine output shortly thereafter. Over his first night of admission began having bowel movements. Patient has had good urine output. Kidney function has improved significantly with BUN and creatinine improved to 28 and 1.4 respectively. Needs repeat CMP in 1 week to monitor kidney function. Patient has been referred to urology as an outpatient at [facility]. Will leave Land in place at this time for urinary obstruction. Continue oxybutynin and tamsulosin per home regimen. No indication for antibiotics at this time as he did not have a UTI on admission. Bowel obstruction/ileus -Likely secondary to distended bladder. Patient has been having bowel movements since resolution of his urinary obstruction. NG was removed on 08/07. Diet has been advanced with good tolerance and no further nausea or vomiting. A-fib: Continue home amiodarone 200 g twice daily, Eliquis 5 mg twice daily, metoprolol 25 mg daily GERD: Continue sucralfate 1 g nightly and pantoprazole 20 mg twice daily Stable for discharge back to longterm. Will leave Land in place. Follow-up with urology scheduled. Exam Data for Last 24 hours Vital signs and Labs for Last 24 Hours: Temp Pulse Resp BP Pulse Ox O2 Del Method 98.1 F 90 18 116/68 99 Room Air 08/08/23 08:00 08/08/23 08:00 08/08/23 08:00 08/08/23 08:00 08/08/23 08:00 08/08/23 08:00 Laboratory Results - last 24 hr 08/08/23 06:41: WBC 4.4 L, RBC 3.72 L, Hgb 11.3 L, Hct 32.8 L, MCV 88.2, MCH 3
--- NOTE | 2023-08-08 14:55 | PC.NURSE ---
Report called to Isabela bullock Beckley at [phone].
[2023-08-08 15:43] VITALS: BP 97/53; PULSE 75; RESP 16; TEMP 36.4; O2SAT 97
== END 2023-08-08 16:05 | DRG 389 ==
LOC: ER 11:27 → 2ND 11:59
PROVIDERS: Admitting Provider Internal Medicine Adolescent Medicine; Emergency Provider Emergency Medicine; PCP Internal Medicine Adolescent Medicine; Visit Provider Internal Medicine Adolescent Medicine
DX: K56.7 Ileus, unspecified (principal); N17.9 Acute kidney failure, unspecified; I48.0 Paroxysmal atrial fibrillation; N40.1 Benign prostatic hyperplasia with lower urinary tract symptoms; R33.8 Other retention of urine; Z79.01 Long term (current) use of anticoagulants; K21.9 Gastro-esophageal reflux disease without esophagitis; N18.9 Chronic kidney disease, unspecified; I50.9 Heart failure, unspecified
CPT/HCPCS: 36415; 51702; 71045; 71275; 74021; 74177; 80053; 81001; 83605; 83690; 83735; 83880; 84436; 84443; 84484; 85025; 85610; 85730; 87040; 87086; 87636; 93005; 97110; 97163; 97165; 97530; 97535; 99285; J2405; Q9967

== ENCOUNTER → 2023-08-18 15:42 | Outpatient (CLI) | payer MEDICARE, SELFPAY | PROVIDERS: PCP Internal Medicine Adolescent Medicine; Visit Provider Urology | DX: R33.8 Other retention of urine (principal); B96.89 Other specified bacterial agents as the cause of diseases classified elsewhere | CPT/HCPCS: 87086 ==

== ENCOUNTER → 2023-08-27 12:46 | Outpatient (CLI) | payer MEDICARE, MEDICAID, SELFPAY ==
--- NOTE | 2023-08-27 12:46 | US_ITS ---
FINAL REPORT CLINICAL HISTORY: urine retention COMPARISON: None FINDINGS: RENAL ULTRASOUND Ultrasound images of the kidneys were obtained. Limited images of the liver parenchyma demonstrates normal echogenicity. The right kidney measures 11.0 cm in length. It is normal echogenicity. There is no hydronephrosis. There is a 2 cm cyst in the lower pole of the right kidney. The left kidney measures 11.2 cm in length. It is normal echogenicity. There is no hydronephrosis. IMPRESSION: Right renal cyst. Otherwise, normal renal ultrasound. Reviewed, Interpreted and Dictated by Booker Hancock MD Transcribed by Rowan Campos Authenticated and [facility]
== END ==
PROVIDERS: PCP Internal Medicine Adolescent Medicine; Visit Provider Urology
DX: N40.1 Benign prostatic hyperplasia with lower urinary tract symptoms (principal); R33.8 Other retention of urine
CPT/HCPCS: 76770

== ENCOUNTER 2023-09-01 07:23 | Day surgery (SDC) | payer MEDICARE, MEDICAID, SELFPAY ==
[2023-09-01] VITALS (9 sets, daily range): BP systolic 102–140; BP diastolic 59–85; PULSE 67–81; RESP 14–18; TEMP 36.4–37; O2SAT 91–98; BMI 21.2
[2023-09-01] MEDS: LACTATED RINGERS 1000ML 1,000 ML 25 ML IV (08:07)
--- NOTE | 2023-09-01 08:29 | P.PNANES_ITS ---
[facility] Disclaimer: The information contained in this section may have been updated after the patient was seen, as this information can be updated by other users. Medical History Abnormal electrocardiogram [ECG] [EKG] Acute urinary retention Atrial fibrillation Chronic atrial fibrillation Chronic kidney disease Deep vein thrombosis (DVT) Goiter History of benign prostatic hyperplasia History of broken leg History of dysphagia History of gastroesophageal reflux (GERD) Urinary tract infection Surgical History History of hernia repair Family History Other No significant family history Social History Smoking Status: Former smoker alcohol intake: never substance use type: denies use current occupational status: retired Travel in the last 8 weeks: None [facility] Anesthesia Checklist Patient Identification Patient Identification: Arm Band and Verbal (Name & ) Structural Data Admitted From: Long-term Nursing Facility Planned Operative Procedure/s: Cystoscopy Consent for Planned Operative Procedure(s) Verified: Yes NPO Status Verified Time NPO: 00:00 Chart Verification Results Verified: CBC and BMP Additional verifications Anesthesia Reactions: No Hx Blood Transfusions: No Blood Transfusion Reaction: No Airway Assessment Mallampati Score:: Class III C-Spine Mobility Assessed: Yes TMJ Mobility Assessed: Yes Dentition: Poor Dentition (Minimal mouth opening) Neurological Assessment Level of Consciousness: Awake Hx Seizures: No Numbness or tingling in extremities: No Anesthesia Plan Anesthesia Risk discussed: Yes Anesthesia Plan: Verified ASA Class: III Anesthesia Type: General
--- NOTE | 2023-09-01 09:26 | SUR.PREOP ---
Pt is alert and oriented to person, place, time but isn't able to tell us what procedure he is having done today. He does point to his bladder. Discussed with Dr. Bonilla at bedside and MD explained to pt the details of the procedure being performed and pt in agreement. Alex Rojo RN at bedside as well.
[2023-09-01] MEDS: SODIUM CHLORIDE IRRIG SOLUTION 3,000 ML 200 ML IR (09:40)
[2023-09-01] MEDS: LIDOCAINE 2% UROJET 10ML 10 ML (09:41)
--- NOTE | 2023-09-01 09:58 | EXP.ANES.I ---
[facility] Anesthesia Record Part I Anesthesia Record I Intake, IV Amount: 800 Hydration: Adequate Estimated blood loss (mL): 5 Urine output (mL): 0 Blood Products used (#): none Blood Pressure: 102/60 SaO2: 92 Pulse Rate: 72 Airway Patency: Patent Respiratory Rate: 14 Temperature: 98.1 F Patient is:: Drowsy and Stable Stable to PACU at:: 09:55
--- NOTE | 2023-09-01 13:32 | P.PCN_ITS ---
[facility] Procedure Note Date: 09/01/23 Time: 09:00 Procedure Note:: Urinary retention: The patient came to the operating room for a voiding trial. He was prepped and draped in a sterile technique. LMAC anesthesia was administered. The patient underwent flexible cystoscopy. The anterior urethra is unremarkable. His posterior urethra is not obstructed and appears to have had a prior TURP. His bladder is heavily trabeculated. He has some debris floating in the bladder from his recent indwelling Land catheter. The ureteral orifices are normal bilaterally. He has no evidence of carcinoma or carcinoma in situ in the urinary bladder. The patient's bladder was left full. He goes back to the long term with instructions if he does not void by 3 PM to reinsert his Land catheter. If the patient does void before 3 PM then they will palpate the lower abdomen. If his bladder seems reasonably empty he will go without a Land catheter. The long term can reinsert the Land catheter on an as necessary basis should incontinence become a management issue.
--- NOTE | 2023-09-02 08:15 | P.PNANES_ITS ---
[facility] Anesthesia Record Part II Anesthesia Record Part II Discharge Time: 10:20 Destination: Surgical Day Care (OP Surgery) PACU nurse assessment reviewed?: Yes Patient Condition:: Good Anesthesia Complications:: None Swallowing reflex intact?: Yes Airway Patency: Patent Cyanosis?: No Blood Pressure: 115/72 SaO2: 96 Respiratory Rate: 17 Pulse Rate: 67 Temperature: 97.5 F Mental Status: Alert & Oriented Pain level:: 0 Nausea and/or vomitting:: None Intake, IV Amount: 0 Hydration: Adequate
[2023-09-02 08:16] VITALS: BP 115/72; PULSE 67; RESP 17; TEMP 36.4; O2SAT 96
== END 2023-09-01 10:40 | disposition home or self-care (01) ==
PROVIDERS: PCP Internal Medicine Adolescent Medicine; Visit Provider Urology
PROC: 0TJB8ZZ Inspection of Bladder, Via Natural or Artificial Opening Endoscopic (ICD-10-PCS; CPT 52000; principal; 2023-09-01 09:00)
DX: R33.9 Retention of urine, unspecified (principal); N32.89 Other specified disorders of bladder
CPT/HCPCS: 52000; 87086

== ENCOUNTER 2023-09-25 10:30 | Outpatient (CLI) | payer MEDICARE, MEDICAID, SELFPAY ==
--- NOTE | 2023-09-25 10:31 | US_ITS ---
FINAL REPORT TECHNIQUE: Limited sonographic images of the thyroid were obtained. CLINICAL HISTORY: Goiter, left side FINDINGS: The thyroid is grossly enlarged. The right lobe of the thyroid measures 5.5 x 1.9 x 2.7 cm. The left lobe of the thyroid measures 11.3 x 6.7 x 7.1 cm. The isthmus measures 3 mm. Multiple cysts are seen in both lobes consistent with multinodular goiter. IMPRESSION: Multinodular goiter. Reviewed, Interpreted and Dictated by Ike Caballero III, MD Transcribed by Jayshree Pantoja Authenticated and [facility]
== END 2023-09-25 23:59 ==
LOC: RAD 10:31
PROVIDERS: PCP Internal Medicine Adolescent Medicine; Visit Provider Nurse Practitioner
DX: E04.9 Nontoxic goiter, unspecified (principal)
CPT/HCPCS: 76536

== ENCOUNTER 2024-09-28 13:50 | Outpatient (CLI) | payer MEDICARE, MEDICAID, SELFPAY ==
[2024-09-28 16:46] LABS: Basophils % 0.4 % (0.1-2.0); Eosinophils # 0.1 K/mm3 (0.0-0.4); Hematocrit 36.8 % (42.0-52.0); Lymphocytes # 0.4 K/mm3 (0.7-4.5); Lymphocytes % 15.5 % (10-50); Mean Corpuscular HGB Conc 32.6 g/dL (31.8-35.4); Mean Corpuscular Volume 88.9 fl (80-94); Mean Platelet Volume 10.8 fl (7.4-10.4); Monocytes # 0.4 K/mm3 (0.1-1.0); Monocytes % 16.7 % (1.7-9.3); Neutrophils # 1.7 K/mm3 (1.8-7.8); Neutrophils % 64.4 % (37.0-80.0); Platelet Count 154 K/mm3 (142-424); Red Blood Count 4.14 M/mm3 (4.60-6.20); Red Cell Distribution Width 14.1 % (11.5-17.5); White Blood Count 2.6 K/mm3 (4.8-10.8)
[2024-09-28 17:07] LABS: Alanine Aminotransferase 29 U/L (12-78); Albumin Level 4.3 g/dl (3.5-5.0); Albumin/Globulin Ratio 1.8 (1.1-1.8); Alkaline Phosphatase 93 U/L (38-126); Anion Gap 16.6 mEq/L (5-15); Aspartate Amino Transferase 37 U/L (17-59); Bilirubin,Total 0.7 mg/dl (0.2-1.3); Blood Urea Nitrogen 29 mg/dl (9-20); Calcium 9.1 mg/dl (8.4-10.2); Carbon Dioxide 22 mmol/L (22.0-30.0); Chloride 102 mmol/L (98-107); Estimated Glomerular Filt Rate 24 ml/min (>60); GFR (African American) 29 ML/MIN (>60); Globulin 2.4 g/dL (1.3-3.2); Glucose 112 mg/dl (74-100); Potassium 5.6 mmoL/L (3.5-5.1); Sodium 135 mmol/L (136-145); Total Protein,Serum 6.7 g/dl (6.3-8.2)
[2024-09-28 17:17] LABS: NT Pro Brain Natriuretic Pep. 3160 pg/mL (0-450)
[2024-09-28 18:37] LABS: HIV Combo NEGATIVE (Negative)
[2024-09-28 18:46] LABS: Hepatitis C Ab Qual. W/ RFX NEGATIVE (Negative)
== END 2024-09-28 23:59 | disposition home or self-care (01) ==
LOC: LAB.DROPOF 09-29 13:29
PROVIDERS: PCP Family Medicine; Visit Provider Family Medicine
DX: Z11.4 Encounter for screening for human immunodeficiency virus [HIV] (principal); Z11.59 Encounter for screening for other viral diseases; I48.20 Chronic atrial fibrillation, unspecified; R06.00 Dyspnea, unspecified; I48.91 Unspecified atrial fibrillation
CPT/HCPCS: 80053; 83880; 84443; 85025; 86803; 87389

== ENCOUNTER 2024-10-13 19:39 | Outpatient (CLI) | payer MEDICARE, MEDICAID, SELFPAY ==
[2024-10-13 19:51] LABS: Basophils % 0.4 % (0.1-2.0); Eosinophils # 0.1 K/mm3 (0.0-0.4); Eosinophils % 2.5 % (0.1-12.0); Hematocrit 37.2 % (42.0-52.0); Lymphocytes # 0.4 K/mm3 (0.7-4.5); Lymphocytes % 15.9 % (10-50); Mean Corpuscular HGB Conc 32.3 g/dL (31.8-35.4); Mean Corpuscular Hemoglobin 28.7 pg (27.0-31.2); Mean Platelet Volume 11.3 fl (7.4-10.4); Monocytes # 0.4 K/mm3 (0.1-1.0); Monocytes % 15.9 % (1.7-9.3); Neutrophils # 1.6 K/mm3 (1.8-7.8); Neutrophils % 65.3 % (37.0-80.0); Platelet Count 143 K/mm3 (142-424); Red Blood Count 4.18 M/mm3 (4.60-6.20); Red Cell Distribution Width 13.7 % (11.5-17.5); White Blood Count 2.4 K/mm3 (4.8-10.8)
[2024-10-13 20:13] LABS: Albumin Level 4.3 g/dl (3.5-5.0); Chloride 101 mmol/L (98-107); Sodium 135 mmol/L (136-145)
[2024-10-13 20:14] LABS: Potassium 5.4 mmoL/L (3.5-5.1)
[2024-10-13 20:16] LABS: Alanine Aminotransferase 22 U/L (12-78); Anion Gap 17.4 mEq/L (5-15); Aspartate Amino Transferase 33 U/L (17-59); Blood Urea Nitrogen 29 mg/dl (9-20); Carbon Dioxide 22 mmol/L (22.0-30.0); Estimated Glomerular Filt Rate 26 ml/min (>60); GFR (African American) 32 ML/MIN (>60)
[2024-10-13 20:17] LABS: Albumin/Globulin Ratio 1.7 (1.1-1.8); Alkaline Phosphatase 96 U/L (38-126); Bilirubin,Total 0.7 mg/dl (0.2-1.3); Calcium 9.4 mg/dl (8.4-10.2); Globulin 2.5 g/dL (1.3-3.2); Glucose 98 mg/dl (74-100); Total Protein,Serum 6.8 g/dl (6.3-8.2)
[2024-10-13 20:26] LABS: NT Pro Brain Natriuretic Pep. 2030 pg/mL (0-450)
== END 2024-10-13 23:59 | disposition home or self-care (01) ==
LOC: LAB.DROPOF 19:40
PROVIDERS: PCP Family Medicine; Visit Provider Family Medicine
DX: I48.20 Chronic atrial fibrillation, unspecified (principal); R06.00 Dyspnea, unspecified
CPT/HCPCS: 80053; 83880; 85025